=== PATIENT | female | born 2005 | race Caucasian/White ===

== ENCOUNTER 2024-10-24 20:08 | Emergency (ER) | payer SELFPAY ==
[2024-10-24] MEDS ORDERED: Cyclobenzaprine 10 MG TAB ONE (20:41)
== END 2024-10-24 20:50 | disposition home or self-care (01) ==
LOC: ERS 20:08
DX: D17.0 Benign lipomatous neoplasm of skin and subcutaneous tissue of head, face and neck (principal)
CPT/HCPCS: 99283